=== PATIENT | male | born 1975 | race Caucasian/White ===

== ENCOUNTER 2023-08-24 13:45 | Emergency (ER) | payer MEDICAID, SELFPAY ==
[2023-08-24 14:05] VITALS: BP 132/97
--- NOTE | 2023-08-24 16:04 | ED.GENMED ---
History of Present Illness
General
Chief Complaint: Prescription Refill
Source: patient
Exam Limitations: none
Time Seen by Provider: 08/24/23 15:40
Nursing documentation reviewed up to this point in time: agreed with
History of Present Illness
History of Present Illness:
47-year-old male with [place] history of anxiety bipolar depression panic disorder hypertension hyperlipidemia presenting to the emergency department with concerns of his Klonopin being stolen last week he has not been able to refill the medication
concerning he is switching doctors at the moment switching doctors to a doctor in [place] he previously was seen in the [facility] and previously in [place] also was out of state for period of time. He is taking this chronically and has not been
feeling well secondary to the lack of Klonopin over the past week. He claims that initially withdrawal symptoms were present that has subsided but now his anxiety is very severe which is what he takes it for in the first place. He also claims that
he has a history of panic disorder and feels that this has become more prevalent. He claims that he contacted [facility] as well as a new primary care doctor
[facility] where he will be following up but they are unable to see him until next week. He claims that he is seeking a 1 week prescription so he can follow-up and sort out ongoing care. PDMP was reviewed and it does appear that he does take
benzodiazepines chronically he previously was receiving from a single provider in 2021 through 2022 in [place].
Past History
Past History
ED Past Medical History: Psychiatric (Anxiety, depression, bipolar disorder, substance abuse)
ED Past Surgical History: Other (Myringotomy tubes)
Social History
Tobacco: Smoker
Alcohol: Binge drinker
Drug: Cocaine and Narcotics
Review of Systems
Review of Systems
Allergies reviewed?: Yes
All Other Systems: ROS reviewed and negative except as documented in HPI and ROS
Phy Exam
Physical Exam
Physical Exam:
GENERAL: Alert , in no apparent distress
EYE: pupils equal and reactive
NECK: Supple, no significant adenopathy.
ENT: o/p clr, mmm.
CARDIAC: Regular rate and rhythm .
LUNGS: Clear breath sounds bilaterally, no acute respiratory distress, no wheezes/rales/rhonchi
ABDOMEN: Soft, without focal tenderness, no r/g, no cvat
NEUROLOGICAL: Alert and oriented, no focal neuro deficits
SKIN: Warm and dry, skin intact.
MUSCULOSKELETAL: No edema, well perfused.
PSYCH: Normal and appropriate interaction.
Course
Vital Signs
Initial and Last Documented VS:
Initial Vital Signs
Temp Pulse Resp BP Pulse Ox
98.2 F 65 16 132/97 98
08/24/23 14:05 08/24/23 14:05 08/24/23 14:05 08/24/23 14:05 08/24/23 14:05
Last Documented Vital Signs
Temp Pulse Resp BP Pulse Ox
98.2 F 65 16 132/97 98
08/24/23 14:05 08/24/23 14:05 08/24/23 14:05 08/24/23 14:05 08/24/23 14:05
MDM/Problems Addressed
MDM/Problems Addressed:
47-year-old male seeking refill of Klonopin and claims that it was stolen little over a week ago. Initially had some withdrawal symptoms that since resolved but now he is having significant anxiety and panic attacks that he initially was taking
this for the first place. He is concerned that he is trying to get follow-up within the next week but having some dip in on the primary care doctors or psychiatrist are willing to prescribe him as he is a new patient to the area. He previously
received care ongoingly from [place]. On arrival here vital signs are normal he has no obvious withdrawal. Does appear generally well-appearing patient is able to supply a police report. It was made very clear to the patient that he cannot get
ongoing prescriptions in the ER. He was initially requesting a full month but we are not able to give that at this time. He was given information for close follow-up so he does not need to get ongoing prescriptions from the ER. He was written for
1 week but otherwise will need outpatient follow-up and should not continue prescription from the ER.
*Critical Care Note
Total Time (30-74mins, 75-104mins- exclusive of procedures): Not Applicable
ED Attending Note
-
Portions of this chart may have been created with voice recognition software.� Occasional wrong word or��sound alike� substitutions may have occurred due to the inherent limitations of voice recognition software.
Discharge Plan
Departure
Patient Disposition: Home (Routine Discharge)
Date of Disposition: 08/24/23
Time of Disposition: 16:13
Patient with high blood pressure during this ER visit?: No
Condition: Good
Covid-19: Not Applicable
Discharge Problem:
Medication refill
Instructions: Drug Misuse and Addiction (DC)
Prescriptions:
New
clonazepam [Klonopin] 1 mg tablet
1 mg PO DAILY 7 Days Qty: 7 0RF
Referrals:
[facility] [Provider Group]
[facility] [Provider Group]
[facility] [Outside] - Follow up in 5-7 days
Activity Restrictions/Additional Instructions:
You came to the emergency department today seeking a refill of your medication. You will need to follow-up with an outside clinic or the free clinic for further assessment and ongoing treatments. Return to the emergency department for any
worsening, new or concerning issues.
Discharge Date and Time
Print Language: KENYAN
== END 2023-08-24 16:39 | disposition home or self-care (01) ==
LOC: EMR 13:45
PROVIDERS: EMERGENCY PHYSICIAN Emergency Medicine
DX: Z76.0 Encounter for issue of repeat prescription (principal); F31.9 Bipolar disorder, unspecified; I10 Essential (primary) hypertension; E78.00 Pure hypercholesterolemia, unspecified; F17.200 Nicotine dependence, unspecified, uncomplicated; Z79.899 Other long term (current) drug therapy
CPT/HCPCS: 99282

== ENCOUNTER 2023-08-28 16:24 | Emergency (ER) | payer MEDICARE, SELFPAY ==
[2023-08-28 16:27] VITALS: BP 126/80
--- NOTE | 2023-08-28 17:24 | ED.GENMED ---
History of Present Illness
General
Chief Complaint: Prescription Refill
Source: patient
Exam Limitations: none
Time Seen by Provider: 08/28/23 17:29
Nursing documentation reviewed up to this point in time: agreed with
History of Present Illness
History of Present Illness:
Patient to ED requesting refill of Klonopin rx. States his prescription was stolen and he has a police report. States his doctor will not refill his prescriptions until the investigation is complete. Patient states the investigation is ongoing.
Here was here last week for same.
Past History
Past History
ED Past Medical History: Psychiatric (Anxiety, depression, bipolar disorder, substance abuse)
ED Past Surgical History: Other (Myringotomy tubes)
Social History
Tobacco: Smoker
Alcohol: Binge drinker
Drug: Cocaine and Narcotics
Phy Exam
General Physical Exam
General Presentation: well appearing and no apparent distress
General age: appears stated age
General Skin: warm and dry
General Habitus: normal
Musculoskeletal Exam
Musculoskeletal Exam: full ROM
Skin Exam
Skin Exam: normal color, warm/dry and no rash
Psychiatric Exam
Psychiatric Exam: normal mood/affect
Course
Vital Signs
Initial and Last Documented VS:
Initial Vital Signs
Temp Pulse Resp BP Pulse Ox
98.5 F 70 18 126/80 96
08/28/23 16:27 08/28/23 16:27 08/28/23 16:27 08/28/23 16:27 08/28/23 16:27
Last Documented Vital Signs
Temp Pulse Resp BP Pulse Ox
98.5 F 58 20 132/77 96
08/28/23 16:27 08/28/23 17:34 08/28/23 17:34 08/28/23 17:34 08/28/23 17:34
*Critical Care Note
Total Time (30-74mins, 75-104mins- exclusive of procedures): Not Applicable
Update Note
Update Note:
2nd visit to ED for refill of Klonopin. Agreed to provide 24 hours worth of medication. He was instructed to follow up with his prescribing provider in the AM. According to [employer] 60 tablets of Klonopin 1mg was dispensed on 08/04, will not be
eligable for new prescription until 09/03. I did let him know that I can not continue to refill his medications, that his needs to be addressed with his prescribing provider.
ED Attending Note
-
Portions of this chart may have been created with voice recognition software.� Occasional wrong word or��sound alike� substitutions may have occurred due to the inherent limitations of voice recognition software.
Discharge Plan
Departure
Patient Disposition: Home (Routine Discharge)
Date of Disposition: 08/28/23
Time of Disposition: 17:20
Patient with high blood pressure during this ER visit?: No
Condition: Good
Covid-19: Not Applicable
Discharge Problem:
Medication refill
Prescriptions:
New
clonazepam [Klonopin] 1 mg tablet
1 mg PO DAILY Qty: 2 0RF
No Action
clonazepam [Klonopin] 1 mg tablet
1 mg PO DAILY 7 Days Qty: 7 0RF
Referrals:
Zachary Shearer, DO [Family Provider] - Tomorrow
Activity Restrictions/Additional Instructions:
Please contact your prescribing physician in the AM. We can not continue to refill this presription.
Interventions
Interventions:
*Risk Screen - Suicide Last Done: 08/28/23 16:27
*General Assessment Last Done: 08/28/23 16:27
*Neglect/Abuse Screening Last Done: 08/28/23 16:27
*ED COVID-19 Vaccine History Last Done: 08/28/23 16:27
*Nursing Disposition Last Done: 08/28/23 17:34
Discharge Date and Time
Discharge Date/Time: 08/28/23 17:35
Print Language: LITHUANIAN
[2023-08-28 17:33] VITALS: BP 132/77
[2023-08-28 17:34] VITALS: BP 132/77
== END 2023-08-28 17:35 | disposition home or self-care (01) ==
LOC: EMR 16:24
PROVIDERS: EMERGENCY PHYSICIAN Emergency Medicine; FAMILY PHYSICIAN Internal Medicine
DX: Z76.0 Encounter for issue of repeat prescription (principal); F41.9 Anxiety disorder, unspecified; F31.9 Bipolar disorder, unspecified; F32.A Depression, unspecified; I10 Essential (primary) hypertension; E78.5 Hyperlipidemia, unspecified; M19.90 Unspecified osteoarthritis, unspecified site; F41.0 Panic disorder [episodic paroxysmal anxiety]; F43.10 Post-traumatic stress disorder, unspecified; F19.11 Other psychoactive substance abuse, in remission; F17.200 Nicotine dependence, unspecified, uncomplicated; Z88.8 Allergy status to other drugs, medicaments and biological substances
CPT/HCPCS: 99281